=== PATIENT | female | born 1990 ===

== ENCOUNTER 2018-08-18 09:38 | Emergency (ER) | payer SELFPAY ==
[2018-08-03 08:57] VITALS: BMI 28.1
== END 2018-08-18 15:45 | disposition home or self-care (01) ==
LOC: H.EROB2 09:38 → H.L&D 09:39 → H.EROB2 15:45
DX: O76 Abnormality in fetal heart rate and rhythm complicating labor and delivery (principal); Z3A.37 37 weeks gestation of pregnancy

== ENCOUNTER 2018-08-26 05:15 | Inpatient (IN) | payer MEDICAID, SELFPAY ==
[2018-08-26 06:27] VITALS: BMI 29.2
[2018-08-26] MEDS ORDERED: Lactated Ringer's 1,000 ML IV ONE (06:28)
[2018-08-26] MEDS ORDERED: Lactated Ringer's 1,000 ML IV SCH (06:30)
[2018-08-26 08:16] LABS: BASO % 0.2 % (0.0-2.0); EOS % 0.2 % (0.0-4.0); HEMOGLOBIN 11.3 g/dL (12.0-16.0); LYMPH # 2.2 K/uL (1.0-4.3); LYMPH % 25.9 % (20.0-40.0); MEAN CELL VOLUME 92.8 fl (81.0-99.0); MEAN CORPUSCULAR HEMOGLOBIN 31.5 pg (27.0-31.0); MEAN PLATELET VOLUME 9.5 fl (7.2-11.7); MONO # 0.6 K/uL (0.0-0.8); MONO % 6.5 % (0.0-10.0); NEUT # 5.7 K/uL (1.8-7.0); NEUT % 67.2 % (50.0-75.0); NRBC % 0.2 % (0.0-0.0); RBC 3.59 Mil/uL (3.80-5.20); RED CELL DISTRIBUTION WIDTH 15.5 % (11.5-14.5); WHITE BLOOD COUNT 8.4 K/uL (4.8-10.8)
[2018-08-26] MEDS ORDERED: OXYTOCIN/0.9 % NS 20 UNIT/1,000 ML BAG IV ONE (08:26)
[2018-08-26] MEDS ORDERED: Oxytocin 30 UNIT 30 UNITS/500 ML BAG IV ONE (08:30)
--- NOTE | 2018-08-26 08:30 | OBADHP ---
Datetime: 08/26/2018 07:11 Admit Comment, IP Provider: 28-year-old at 38.6 weeks EGA presents for suspected rupture of mem branes since 3am, 2 hours prior to presentation. She has mild contraction pains every 5-10 minutes. D enies vaginal bleeding and endorses good movement. Has been getting weekly BPP/NST d/t HC/BPD l agging 2+ wks on 36 wk growth; HC 1% from 11%, EFW 22%. Patient of [facility] Dr Cosme, last seen 2 days prior to presentation, 08/24. OBGYN: [facility]- Dr Cosme PMH: denies OBHx: , IOL @ 41 weeks, no complications Meds: PNV, Ferrous Sulfate Labs: O+, Abody neg, GBS neg, rubella immune, RPR neg, HbSAg neg Social: denies Famiyl Hx: denies Allergies: denies Surgical Hx: denies ROS: all other systems reviewed and negative unless noted in HPI PE: comfortable, in no acute distress Resp: no resp distress CV: S1, S2, RRR Abd: IUP, no tenderness to pain Ext: no edema Pelvic: speculum exam - grossly ruptured, clear fluid, no foul odor, nitrizine +; 07/31/3. A+P: 28-year-old at 38.6 weeks EGA presents for rupture of membranes 3 hours prior to present ation. -Admit for labor protocol -Continuous EFM: reassuring Category I, accelerations present 15x15, no decelerations, FHR 140 -Cervadil 10mg -Allow for natural progression of labor Case discussed with Dr Rivera Reaves PGY1 Pelvic Type - PN: Adequate Extremities - PN: Normal Abdomen - PN: Normal Back - PN: Normal Breast - PN: Not Done Lungs - PN: Normal Heart - PN: Normal Thyroid - PN: Not Done Neurologic - PN: Not Done HEENT - PN: Normal General - PN: Normal FHR - Baseline A Provider: 140 Amniotic Fluid Color, Provider: Clear Membranes, Provider: Ruptured Pool Provider: Positive Nitrazine Provider: Positive Vital Signs Provider: Reviewed; Within Normal Limits IP Chief Complaint: Suspected ruptured membranes; Maternal discomfort NICHD Variability Prov Fetus A: Moderate 6-25bpm NICHD Accel Fetus A IP Provider: 15X15 FHR Category Provider Fetus A: Category I NICHD Decel Fetus A IP Provider: None Dilatation, Provider: 1 Effacement, Provider: 20 Station, Provider: -3 Genitourinary Exam: Normal DTRs - PN: Not Done EGA AdmitDate IP: 38.6 IP Adm Impression: Term, intrauterine IP Admit Plan: Admit to unit; Initiate labor protocol Datetime: 08/18/2018 10:06 IP Chief Complaint Other: Non-reactive NST
[2018-08-27] MEDS ORDERED: Oxytocin 30 UNIT 30 UNITS/500 ML BAG IV ONE (02:40)
[2018-08-27] MEDS ORDERED: Benzocaine/Menthol SPRAY TOP PRN (05:54)
[2018-08-27 11:31] LABS: BASO # 0.1 K/uL (0.0-0.2); BASO % 0.6 % (0.0-2.0); HEMOGLOBIN 10.9 g/dL (12.0-16.0); LYMPH # 1.4 K/uL (1.0-4.3); LYMPH % 8.2 % (20.0-40.0); MEAN CELL VOLUME 92.4 fl (81.0-99.0); MEAN CORPUSCULAR HEMOGLOBIN 31.6 pg (27.0-31.0); MEAN CORPUSCULAR HGB CONC 34.2 g/dL (33.0-37.0); MEAN PLATELET VOLUME 8.9 fl (7.2-11.7); MONO # 1.1 K/uL (0.0-0.8); MONO % 6.5 % (0.0-10.0); NEUT # 14.2 K/uL (1.8-7.0); NEUT % 84.7 % (50.0-75.0); PLATELET COUNT 172 K/uL (130-400); RBC 3.44 Mil/uL (3.80-5.20); RED CELL DISTRIBUTION WIDTH 15.7 % (11.5-14.5); WHITE BLOOD COUNT 16.8 K/uL (4.8-10.8)
[2018-08-27 14:55] LABS: BANDS 5 % (0-2); LYMPHOCYTE 11 % (20-50); MONOCYTE 12 % (0-10); NEUTROPHIL 72 % (42-75); TOTAL CELLS COUNTED 100
[2018-08-27 14:56] LABS: ANISOCYTOSIS SLIGHT; HYPOCHROMIC SLIGHT; PLATELET ESTIMATE NORMAL (NORMAL)
[2018-08-28] MEDS ORDERED: Benzocaine/Menthol SPRAY TOP PRN (06:54)
--- NOTE | 2018-08-28 13:39 | OBPPN ---
Datetime: 08/28/2018 07:46 PP Pain Prov: Within normal limits PP Nausea Prov: Denies PP Flatus Prov: No PP BM Prov: No PP Heart Prov: Normal PP Lungs Prov: Normal PP Abdomen/Uterus Prov: Normal PP Lochia Prov: Normal PP Extremities Prov: Normal PP Impression Prov: Normal progression PP Plan Prov: Continue present management PP Progress Note Prov: 28 y/o , PPD 1 s/p was seen and examined this morning. There were no acute events overnight. Patient is , and tolerating Po regular diet w/o nausea or vomit ting. Patient is able to ambulate w/o difficulty. + urination w/o dysuria or difficulty, -flatus, -BM . Pain is as anticipated and is well controlled. She denied any f/c/cp or sob. VS: stable Cardio: s1s2 RRR Resp: cta b/l no wheeze Abd: soft, uterus @ level of umbilicus, firm, no guarding or rigidity Ext: nonedematous, calves nontender A/P: 28 y/o , PPD 1, clinically stable, s/p 1. Encourage _ ambulation 2. C/w current medication regimen 3. anticipatory dc 08/29/[address] Isai Jaimes [facility] [place] Vital Signs Provider PP: Reviewed; Within Normal Limits
--- NOTE | 2018-08-29 08:00 | OBPPN ---
Datetime: 08/29/2018 06:41 PP Pain Prov: Within normal limits PP Nausea Prov: Denies PP Flatus Prov: Yes PP BM Prov: Yes PP Breasts Prov: Not Done PP Heart Prov: Normal PP Lungs Prov: Normal PP Abdomen/Uterus Prov: Normal PP Lochia Prov: Normal PP Vulva/Perineum Prov: Not Done PP CVA Tenderness Prov: Normal PP Extremities Prov: Normal PP C/S Incision Prov: Not Applicable PP Progress Prov: Normal PP Impression Prov: Normal progression PP Plan Prov: Continue present management PP Progress Note Prov: S: 28 yo s/p on 08/27/18, PPD2. [facility] No overnight events. Pain is minimal. Ambulating and tolerating PO diet without difficulty . Breast and bottle feeding. Lochia < menses. +Flatus/+ BM. Denies dizziness, orthostatic changes, c hange in vision, palpitations, chest pain, fever, chills, diarrhea, nausea and vomiting. O: VS: Stable overnight GEN: NAD Cardio: S1S2, no murmurs Lungs: clear breath sounds b/l, no wheezing Abdomen: BS+, appropriate tenderness to palpation. Uterus is firm and at the level of the umbilic us. EXT: No edema, calves non-tender NEURO/PSYCH: AAOx3, no grossly focal deficits, preserved affect and mood. H/H: aCBC: 11.3/33.3 pCBC: 10.9/31.8 Assessment/Plan: 28 yo s/p on 08/27/18, PPD2. Pt remains afebrile, tolerating pain. -Regular diet -Anticipating d/c on 08/29 -Continue with current management -Encourage and ambulating -Ibuprofen 600mg q6 for pain Nicki Reaves PGY1 Attending addendum: I saw and examined the patient myself this morning. I reviewed the resident note above and agree w ith findings and management. Noreen Cosme MD IP PP Procedures: None Vital Signs Provider PP: Reviewed; Within Normal Limits
--- NOTE | 2018-08-29 08:02 | OBDCSUM ---
Datetime: 08/29/2018 06:42 Discharged to, Provider: Home Follow up at, Provider: [facility] Dr Cosme Disch Instr Activity: Normal activity Disch Instr Diet: Regular Discharge Instructions, Provider: Routine instructions given Discharge Diagnosis, Provider: Term Delivered Follow up in weeks, Provider: 6 weeks Disch Referrals: None Contraception discussed, Prov: Yes Disch Activity Restrictions: No exercising; Minimize stair-climbing; No sexual activity; Nothing in vagina - [place], tampons, douche Discharge Comment, Provider: 28 yo s/p of baby boy on 08/27/18 at 38+6 weeks EGA. : Male, Wt. 2815 gm, 9/9 Post- D/C Summary: No OB complications. No complications during post- period. Lochia i s less than menses. Pt able to pass flatus, voiding well and able to ambulate without difficulty. Adm its to one BM. Tolerating regular diet w/o N/V. Fundus firm below umbilicus level. Pt is hemodynamica lly stable (EBL 100cc). H/H: aCBC: 11.3/33.3; pCBC: 10.9/31.8 Discharge Instructions given to patient: Encourage PNV 1 tab po q/day Ibuprofen 600 mg 1 tab po prn q4-6 if moderate pain #30. NO REFILL. Ambulatory with caution, nothing per vagina/sex for 4 weeks, no heavy lifting, avoid stairs, if ex cessive bleeding or fever without relief from Tylenol go to ED Follow-up [facility] - Dr Cosme 6 weeks post- Nicki Reaves PGY1 Attending addendum: I saw and examined the patient this morning. I agree with the above resident assessment and plan. Contraception after Delivery: Undecided
[2018-08-29 18:43] VITALS: BP 100/64; PULSE 58; RESP 20; TEMP 98; O2SAT 100
== END 2018-08-29 13:40 | disposition home or self-care (01) | DRG 560 ==
LOC: H.EROB2 05:15 → H.L&D 06:28 → H.OB/GYN 08-27 13:15
PROVIDERS: ADMIT Obstetrics & Gynecology; ATTEND Obstetrics & Gynecology
PROC: 4A1HXCZ Monitoring of Products of Conception, Cardiac Rate, External Approach (ICD-10-PCS; 2018-08-26)
PROC: 10E0XZZ Delivery of Products of Conception, External Approach (ICD-10-PCS; principal; 2018-08-27)
DX: O76 Abnormality in fetal heart rate and rhythm complicating labor and delivery (principal); O62.3 Precipitate labor; Z37.0 Single live birth; Z3A.39 39 weeks gestation of pregnancy